=== PATIENT | female | born 2000 | race Two or more races ===

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

== ENCOUNTER 2019-04-26 21:05 | Emergency (ER) | payer OTHER ==
[~2019-04-26] VITALS: Ht 172.7 cm; Wt 80.0 kg
[2019-04-26] MEDS ORDERED: DICL75TA (21:13)
[2019-04-26] MEDS ORDERED: blood pressure (21:13)
[2019-04-26 23:05] VITALS: BP 159/109
--- NOTE | 2019-04-27 08:13 | REP ---
Clinical: Trauma. Technique: AP, lateral, bilateral oblique views right foot . Findings: The osseous structures and joint spaces are intact and normal. There is no evidence for acute fracture or dislocation. Surrounding soft tissues are unremarkable. No subcutaneous emphysema or radiodense foreign body. Impression: Normal right foot series . No acute fracture or dislocation. Electronically Signed by Juan Shelton MD 04/27/2019 08:04 A
== END 2019-04-26 23:08 | disposition home or self-care (01) ==
LOC: M ED 21:05
DX: M79.671 Pain in right foot (principal); W50.1XXA Accidental kick by another person, initial encounter; Y92.9 Unspecified place or not applicable; Y93.66 Activity, soccer; I10 Essential (primary) hypertension; Z79.899 Other long term (current) drug therapy

== ENCOUNTER 2019-08-12 21:07 | Emergency (ER) | payer OTHER ==
[~2019-08-12] VITALS: Ht 172.7 cm; Wt 84.1 kg
[~2019-08-12 21:07] MED LIST: DICL75TA; blood pressure
[2019-08-12] MEDS ORDERED: BISO10TA4 PO (21:12)
[2019-08-12] MEDS ORDERED: CHLO25TA PO (21:12)
[2019-08-12 22:28] LABS: HEMATOCRIT 32.9 % (36.0-47.0); HEMOGLOBIN 10.4 g/dl (12.0-15.5); MEAN CORPUSCULAR HEMOGLOBIN 25.7 pg (27.0-33.0); MEAN CORPUSCULAR HGB CONC 31.6 g/dl (32.0-36.5); MEAN CORPUSCULAR VOLUME 81.2 fl (80.0-96.0); PLATELET COUNT, AUTOMATED 328 10^3/uL (150-450); RED BLOOD COUNT 4.05 10^6/uL (4.00-5.40); WHITE BLOOD COUNT 5.9 10^3/uL (4.0-10.0)
[2019-08-12 23:00] LABS: BLOOD UREA NITROGEN 11 MG/DL (7-18); CARBON DIOXIDE LEVEL 31 MEQ/L (21-32); CHLORIDE LEVEL 106 MEQ/L (98-107); CK-MB VALUE MASS 1.2 NG/ML (<3.6); CPK CREATINE PHOSPHOKINASE 560 U/L (26-192); CREATININE FOR GFR 0.83 MG/DL (0.55-1.30); GLUCOSE, FASTING 82 MG/DL (70-100); MB/CK RELATIVE INDEX 0.21 (< OR =4); POTASSIUM SERUM 3.5 MEQ/L (3.5-5.1); SODIUM LEVEL 140 MEQ/L (136-145); TROPONIN I 0.07 NG/ML (< 0.10)
[2019-08-12 23:31] VITALS: BP 163/91
--- NOTE | 2019-08-12 23:52 | ECGEPIP ---
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
== END 2019-08-12 23:50 | disposition home or self-care (01) ==
LOC: M ED 21:07
DX: R07.89 Other chest pain (principal); I10 Essential (primary) hypertension

== ENCOUNTER 2021-03-01 08:00 | Emergency (ER) | payer OTHER ==
[~2021-03-01] VITALS: Ht 170.2 cm; Wt 88.2 kg
[~2021-03-01 08:00] MED LIST changes: +BISO10TA4 PO; +CHLO25TA PO
[2021-03-01 08:08] VITALS: BP 158/98
[2021-03-01] MEDS ORDERED: LISI-898 (08:12)
[2021-03-01] MEDS ORDERED: KETOROLAC TROMETHAMINE 10 MG TAB PO ONE (08:30)
[2021-03-01] MEDS ORDERED: KETO10TAB PO (09:18)
== END 2021-03-01 09:32 | disposition home or self-care (01) ==
LOC: M ED 08:00
DX: M26.602 Left temporomandibular joint disorder, unspecified (principal); I10 Essential (primary) hypertension; Z79.899 Other long term (current) drug therapy

== ENCOUNTER 2021-08-03 06:52 | Emergency (ER) | payer OTHER ==
[~2021-08-03] VITALS: Ht 172.7 cm; Wt 88.2 kg
[~2021-08-03 06:52] MED LIST changes: +KETO10TAB PO; +LISI-898
--- OUTSIDE RECORDS SUMMARY | 2021-08-03 07:00 | CCD ---
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 If such information is present, then the following federally mandated warning applies: This information has been disclosed to you from records protected by federal confidentiality rules (42 CFR part 2). The federal rules prohibit you from making any further disclosure of this information unless further disclosure is expressly permitted by the written consent of the person to whom it pertains or as otherwise permitted by 42 CFR part 2. A general authorization for the release of medical or other information is NOT sufficient for this purpose. The Federal rules restrict any use of the information to criminally investigate or prosecute any alcohol or drug abuse patient.The records that you are about to access may contain highly sensitive health information, the redisclosure of which is protected by Article 27-F of the [facility] Public Health law. If you continue you may have access to information: Regarding HIV / AIDS; Provided by facilities licensed or operated by the [facility] Office of Mental Health; or Provided by the [facility] Office for People With Developmental Disabilities. If such information is present, then the following [facility] mandated warning applies: This information has been disclosed to you from confidential records which are protected by state law. State law prohibits you from making any further disclosure of this information without the specific written consent of the person to whom it pertains, or as otherwise permitted by law. Any unauthorized further disclosure in violation of state law may result in a fine or chcf sentence or both. A general authorization for the release of medical or other information is NOT sufficient authorization for further disc losure. Encounters Encounter Providers Location Date Indications Data Source(s ) Emergency Attender: ZAID HOLLOWAYConsultant: [facility] 01/03/2021 12:02:00 PM EDT - 01/03/2021 02:25:00 PM EDT [facility] Patient discharged. Immunizations Vaccine Date Status Description Data Source(s) COVID-19 VACCINE Magen 01/03/2021 12:00:00 AM EDT completed NYSIIS Vaccine Series Complete: YESThis Data wa s Submitted to [facility] Via [facility]. Medications No Information Insurance Providers Payer name Policy type / Coverage type Policy ID Covered alliance party ID Covered alliance party's relationship to vasquez Policy Vasquez Plan Information [employer] [id number] SP [id number] [employer] - O/P [id number] 18 [id number] [employer] F [id number] SELF [id number] [facility] Trevenaa F [id number] SELF [id number] ANSI-Not a Secondary Insurance [id number] Problems, Conditions, and Diagnoses Code Display Name Description Problem Type Effective Dates Data Source(s) V37539 Other half-way (current) drug therapy 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 Diagnosis 01/03/2021 12:02:00 PM EDT [facility] R778 Other specified abnormalities of plasma proteins Other specified abnormalities of plasma proteins Diagnosis 01/03/2021 12:02:00 PM EDT [facility] R7989 Other specified abnormal findings of blo od chemistry Other specified abnormal findings of blood chemistry Diagnosis 01/03/2021 12:02:00 PM EDT [facility] R791 Abnormal coagulation profile Abnormal coagulation prof ile Diagnosis 01/03/2021 12:02:00 PM EDT [facility] I10 Essential (primary) hypertension Essential (primary) h ypertension Diagnosis 01/03/2021 12:02:00 PM EDT [facility] M940 Chondrocostal junction syndrome [Tietze] Chondrocostal junction syndrome [Tietze] Diagnosis 01/03/2021 12:02:00 PM EDT [facility] R0789 Other chest pain Other chest pain Diagnosis 01/03/2021 12 :02:00 PM EDT [facility] Surgeries/Procedures No Information Results ID Date Data Source [id number] 01/05/2021 10:53:00 AM EDT [facility] [address] [place] [address] PHONE: [phone] FAX: [phone] Name .................. : HIEU Zhao Acct Number.................. : [id number] ROOM. ................. : [facility]03 Number ................... : [id number] Stay type ............. : E/R Discharge Date......... ... : 01/03/21 Admit Date ......... : 01/03/21 Admit Phys .................... : AMIE ORDOÑEZ Date of ....... : 2000 Family Phys ................... : UNKNOWN Phone . ................. : [phone] Age ................................ : 20 Film# .................. .:[id number] Sex ................................. : F Unsigned transcriptions are preliminary reports and do not represent a medical or legal document CHEST PORTABLE 13715 COMPLETE:01/03/21 14:42 [facility] 8569 Reason(s): Chest Pain PORTABLE CHEST X-RAY: INDICATION: Chest pain. FINDINGS: The cardiac and mediastinal silhouettes appear normal and the lungs are clear. The bones and soft tissues are normal. The upper abdomen is unremarkable. IMPRESSION: No acute disease identifiable. Examination dictated by EFRAIN Manning. Examination was reviewed with Frank Hinton MD, radiologist at the time of this dictation. Electronically Reviewed and Signed By Frank Hinton MD , 01/05/21 10:53, KGG Transcribe Initials: DZ , Transcribe Date: 01/03/21 16:18, Dictation Date: Copy for: EMERGENCY DEPT via modem Copy for: 710 MED REC DISCHARGED Page 1 of 1 Name Value Range Interpretation Code Description Data Diane rce(s) Supporting Document(s) ID Date Data Source [id number] 01/04/2021 10:59:00 [place] [address] RESPIRATORY CARE REPORT ==== ---------NAME------- NUMBER SEX AGE ADMIT DISC. XRAY# F/C ROSALINE Zhao [id number] F 01/03/21 01/03/21 [id number] SB4 E/R DATE OF : 2000 M/R# [id number] #: [id number] TR-03 LOCATION: EMERGENCY DEPT EKG 49646 COMP LETE:01/04/21 03:12 AJP 79719 PHYSICIAN: AMIE ORDOÑEZ Name Value Range Interpretation Code Description Data Diane rce(s) Supporting Document(s) ID Date Data Source [id number] 01/04/2021 11:36:00 AM EDT [facility] [address] [place] [address] PHONE: [phone] FAX: [phone] Name .................. : HIEU SARAVIASLYN Pavel Acct Number.................. : [id number] ROOM. ................. : TR-03 Number ................... : [id number] Stay type ............. : E/R Discharge Date......... ... : 01/03/21 Admit Date ......... : 01/03/21 Admit Phys .................... : AMIE ORDOÑEZ Date of ....... : 2000 Family Phys ................... : UNKNOWN Phone .................. : Age ................................ : 20 Film# .................. .:[id number] Sex ................................. : F Unsigned transcriptions are preliminary reports and do not represent a medical or legal document CT CTA CHEST NON-CORONARY Luzma Kraft 02872 COMPLETE:01/03/21 13:55 [facility] 8581 Reason(s): chest pain, high d-dimer CTA OF THE CHEST WITH CONTRAST: FINDINGS: Pulmonary embolism, aortic aneurysm or aortic dissection is not identified. The heart is not enlarged. There is no pleural effusion or pericardial effusion. Pneumonic infiltrate or pulmonic mass lesion is not seen. The central endobronchial structures are unremarkable. The upper abdomen is without suggestion of acute pathology or mass. Fracture deformity or destructive osseous lesion is not identified. IMPRESSION: Slightly limited examination due to motion. Pulmonary embolism, aortic aneurysm or aortic dissection not seen. Mass or adenopathy not identified. Pneumonic infiltrate is not seen. While performing the above CT examination, radiation dose reduction was accomplished utilizing automated exposure control, adjusting of the mA and kV based on the patient's body size and/or the use of imperative reconstructive techniques. CT dose: 448.4 mGycm Contrast agent in mL: 75 Isovue 370 Method of administration: Intravenous Electronically Reviewed and Signed By Page 1 of 2 [place] [address] PHONE: [phone] FAX: [phone] Name .................. : HIEU Zhao Acct Number.................. : [id number] ROOM. ................. : TR-03 MR Number ................... : [id number] Stay type ............. : E/R Discharge Date......... ... : 01/03/21 Admit Date ......... : 01/03/21 Admit Phys .................... : AMIE ORDOÑEZ Date of ....... : 2000 Family Phys ................... : UNKNOWN Phone .................. : Age ................................ : 20 Film# .................. .:[id number] Sex ................................. : F Unsigned transcriptions are preliminary reports and do not represent a medical or legal document CT CTA CHEST NON- CORONARY W C 21163 COMPLETE:01/03/21 13:55 [facility] 8581 Reason(s): chest pain, high d-dimer Frank Hinton MD , 01/04/21 11:36, KGG Transcribe Initials: LE , Transcribe Date: 01/04/21 01:11, Dictation Date: Copy for: EMERGENCY DEPT via modem Copy for: 710 MED REC DISCHARGED Page 2 of 2 Name Value Range Interpretation Code Description Data Diane rce(s) Supporting Document(s) ID Date Data Source [id number] 01/03/2021 12:02:00 PM EDT [facility] 1 OrderSheet [facility] Emergency Department [address] [place] [address] Phone #: ext- [phone] 01/03/2021 11:47 Patient: JOHNNY HAGEN Sex: F : 2000 Age: 20yWEIGHT:87.5 kg (S) HEIGHT:68 inches (S) BMI:29.3ALLERGIES: NoneCHIEF COMPLAINT: chest pain, discomfortDIAGNOSIS: Costal chondritisLAB ORDERSOrder Description Priority Entered Acknowledged InitialedCBC w Diff STAT 12:01/03/2021 12:12 Amie Galvan Riccardo Frank R.N. M.D.;CMP STAT 12:01/03/2021 12:12 Amie Galvan Riccardo Frank R.N. M.D.;PT/PTT STAT 12:01/03/2021 12:12 Amie Galvan Riccardo Frank R.N. M.D.;Troponin-T STAT 12:01/03/2021 12:12 Amie Galvan Riccardo Frank R.N. M.Amanda;BNP STAT 12:01/03/2021 12:12 Amie Galvan Riccardo Frank R.N. M.D.;D-Dimer STAT 12:01/03/2021 12:12 Amie Galvan Riccardo Frank R.N. M.Yani.;Lipase STAT 12:01/03/2021 12:12 Amie Galvan Riccardo Frank R.N. M.D.;HCG Serum Qual STAT 12:01/03/2021 12:12 Amie Galvan Riccardo Frank R.N. M.D.;HCG Urine Qual STAT 13:15 01/03/2021 Cancelled: Duplicate Order 13:17 Amie Holloway Riccardo Riccardo M.D. M.D.;DIAGNOSTIC STUDY ORDERSOrder Description Priority Entered Acknowledged InitialedChest Portable 1 STAT 12:01/03/2021 12:12 Bienvenido Galvan OrderSheet [facility] Emergency Department [address] [place] [address] Phone #: ext- [phone] 01/03/2021 11:47 Patient: JOHNNY HAGEN Sex: F : 2000 Age: 20yView Zaid Holloway R.N.(Oxygen?(No)) Daniel; Reason for Study: Chest PainCT CTA CHEST STAT 13:13 01/03/2021 13:15 Mandy,(NONCOR) W Zaid Bobby R.N.INC PP M.D.;(Oxyge n?(No))(IV?(Yes)) Reason for Study: chest pain, high d- dimerMEDICATION/IV/DRIP/FLUID ORDERSOrder Description Priority Entered Acknowledged InitialedAspirin PO 12:01/03/2021 12:21 Sorbero,Chewable 81 mg Turrin, Zaid Reji R.N.162 mg M.D.;Ofirmev IV 1000 mg 12:01/03/2021 12:21 Sorbero,(NOW x1, Infuse Turrin, Zaid Reji R.N.over 15 minutes) M.D.;GENERAL ORDERSOrder Description Priority Entered Acknowledged InitialedBlood Pressure 12:01/03/2021 12:12 Sorbero,Monitor Turrin, Zaid Reji R.N. M.D.;Lettuce Cutter 12:01/03/2021 12:12 Sorbero,(continuous) Turrin, Zaid Reji R.N. M.D.;EKG 12:01/03/2021 12:12 Sorbero, Turrin, Zaid Reji R.N. M.D.;NPO 12:01/03/2021 12:12 Sorbero, Turrin, Zaid Reji R.N. M.D.;Obtain Old EKG 12:01/03/2021 12:12 Sorbero, Turrin, Zaid Reji R.N. M.D.;Obtain Old Records 12:01/03/2021 12:12 Sorbero, Turrin, Zaid Reji R.N. M.D.;Oxygen titrate to 12:01/03/2021 12:12 Sorbero,92% Turrin, Zaid Reji R.N. M.D.;Pulse oximeter 12:01/03/2021 12:12 Sorbero, 3 OrderSheet [facility] Emergency Department [address] [place] [address] Phone #: ext- [phone] 01/03/2021 11:47 --------- [id number] Sex: F : 2000 Age: 20y(Continuous) Zaid Hollwoay R.N., M.D.;Saline Lock 12:09 01/03/2021 12:12 Amie Galvan Riccardo Frank R.N. M.D.;Vitals 12:09 01/03/2021 12:12 Amie Galvan Riccardo Frank R.N. M.D.;[Electronically signed by Carri Jimenes R.N. (14:01/03/2021)][Electronically signed by Zaid Holloway M.D. (14:01/03/2021)][Electronically locked by Carri Jimenes R.N. (14:01/03/2021)] Name Value Range Interpretation Code Description Data Diane rce(s) Supporting Document(s) ID Date Data Source [id number] 01/03/2021 12:02:00 PM EDT [facility] 1 Medication Reconciliation Report [facility] Emergency Department [address] [place] [address] Phone #: ext- [phone] 01/03/2021 11:47 Patient: JOHNNY HAGEN Sex: F : 2000 Age: 20yWeight: 87.5 kgHeight/Length: 68 in.BMI: 29.3ALLERGIES: NoneThe patient's Home Medications are listed below:CONTINUE TAKING THE FOLLOWING MEDICATIONS: Chlorthalidone Oral (25 mg), daily Lisinopril Oral (5 mg), dailyThe source(s) of the original Home Medication information:Not obtained.The following Medications were given to the patient in the Emergency Department:ASPIRIN CHEWABLE 81 MG [PO] PO 162 mg, administered: 12:21 04/12/2021ofirmev IVPB bolus 0, then 1000 mg, administered: 12:21 01/03/2021The following Medications were prescribed to the patient:None. Name Value Range Interpretation Code Description Data [facility](s) Supporting Document(s) ID Date Data Source [id number] 01/03/2021 12:02:00 PM EDT [place] [address] Medication Administration Record [facility] Emergency Department [address] [place] [address] Phone #: ext [phone] 01/03/2021 11:47 Patient: JOHNNY HAGEN Sex: F : 2000 Age: 20yWeight: 87.5 kgHeight/Length: 68 inBMI: 29.3ALLERGIES: None Date/Time Medication Administered Medication OrderedGiven ASPIRIN CHEWABLE 81 MG [PO] Aspirin PO Chewable 81 mg 97490:21 01/03/2021 Dose: 162 mg Tablets PO mgSoReji sanderson R.N.Start ofirmev * Ofirmev IV 1000 mg (NOW x1,12:21 01/03/2021 Dose: 1000 mg * IVPB Infuse over 15 minutes)Reji Galvan R.N.----Stop12:37 01/03/2021Reji huffman R.N. Name Value Range Interpretation Code Description Data [facility](s) Supporting Document(s) ID Date Data Source [id number] 01/03/2021 12:02:00 PM EDT [facility] 1 General Instructions [facility] Emergency Department [address] [place] [address] Phone #: ext- [phone] 01/03/2021 11:47 Patient: JOHNNY HAGEN [facility]#: [id number] Sex: F : 2000 Age: 20yCostochondritis (recurrent).INSTRUCTIONSAvoid stimulants (such as cigarettes, coffee, cold medicines, sinus medicines, street drugs). Follow a lowsalt diet and low cholesterol diet. Do not smoke. No alcohol.Warnings: Further evaluation is necessary. It is very important to follow up with a healthcare provider.GENERAL WARNINGS: Return or contact your physician immediately if your condition worsens orchanges unexpectedly, if not improving as expected, or if other problems arise. SPECIFICALLY, return ifyou develop chest, neck, jaw, shoulder, arm, or back pain, difficulty breathing, a fluttering sensation in yourchest, lightheadedness, fainting, excessive fatigue, or sudden sweating.Your Current Medications: Your current home medications have been reviewed.CONTINUE TAKING THE FOLLOWING MEDICATIONS:Chlorthalidone Oral : Tablet 25 mg, daily.Lisinopril Oral : Tablet 5 mg, daily.Follow-up:Return to the emergency department as needed. Follow up with a senior management consultant in three days even if well.Call for an appointment. Reason for referral: evaluation, treatment and stress test. Summary of careprovided to patient via paper.Understanding of the discharge instructions verbalized by patient. Expected course of illness, dischargeinstructions, activity level, diet, follow-up appointment and risks and benefits of treatment reviewed withpatient and understanding verbalized. Agrees to plan of care.Follow-up with: Kevin Clark MD, Cardiology, , [address] [place] [address], [facility] Follow up in three days even if well. Call for an appointment. Reason for referral: evaluation, treatmentand stress test. Summary of care provided to patient via paper. ADDITIONAL INFORMATIONChest Wall Pain: Costochondritis 2 General Instructions [facility] Emergency Department [address] [place] [address] Phone #: ext- [phone] 01/03/2021 11:47 [facility]: [id number] Sex: F : 2000 Age: 20yThe chest pain that you have had today is caused by costochondritis. This condition is caused by aninflammation of the cartilage joining your ribs to your breastbone. It's not caused by heart or lungproblems. Your healthcare team has made sure that the chest pain you feel is not from a lifethreatening cause of chest pain such as heart attack, collapsed lung, blood clot in the lung, tear in theaorta, or esophageal rupture. The inflammation may have been brought on by a blow to the chest,lifting heavy objects, intense exercise, or an illness that made you cough and sneeze a lot. It oftenoccurs during times of emotional stress. It can be painful, but it's not dangerous. It usually goes awayin 1 to 2 weeks. But it may happen again. Rarely, a more serious condition may cause symptomssimilar to costochondritis. That's why it's important to watch for the warning signs listed below.Home careFollow these guidelines when caring for yourself at home: If you feel that emotional stress is a cause of your condition, try to figure out the sources of that stress. It may not be obvious. Learn ways to deal with the stress in your life. This can include regular exercise, muscle relaxation, meditation, or simply taking time out for yourself. You may use acetaminophen, ibuprofen, or naproxen to control pain, unless another pain medicine was prescribed. If you have liver or kidney disease or ever had a stomach ulcer, talk with your healthcare provider before using these medicines. You can also help ease pain by using a hot, wet compress or heating pad. Use this with or without a medicated skin cream t hat helps relieves pain. Do stretching exercise as advised by your provider. Typically rest is beneficial for the first few days. Avoid strenuous activity that worsens the pain. 3 General Instructions [facility] Emergency Department [address] [place] [address] Phone #: ext- [phone] 01/03/2021 11:47 Patient: JOHNNY HAGEN Sex: F : 2000 Age: 20y Take any prescribed medicines as directed.Follow- up careFollow up with your healthcare provider, or as advised.When to seek medical adviceCall your healthcare provider right away if any of these occur: A change in the type of pain. Call if it feels different, becomes more serious, lasts longer, or spreads into your shoulder, arm, neck, jaw, or back. Shortness of breath or pain gets worse when you breathe Weakness, dizziness, or fainting Cough with dark-colored sputum (phlegm) or blood Abdominal pain Dark red or black stools Fever of 100.4F (38C) or higher, or as directed by your healthcare provider [phone] [employer]. [address] [place] [address]. All rights reserved. This information is not intended as asubstitute for professional medical care. Always follow your healthcare professional's instructions. You have been given the following additional information: Chest Wall Pain, Costochon dritis(Electronically signed by Zaid Holloway M.D. 01/03/2021 14:41) Name Value Range Interpretation Code Description Data Diane rce(s) Supporting Document(s) ID Date Data Source [id number] 01/03/2021 12:02:00 PM EDT [facility] 1 Clinical Report - Nurses [facility] Emergency Department [address] [place] [address] Phone #: ext- [phone] 01/03/2021 11:47 Patient: JOHNNY HAGEN Sex: F : 2000 Age: 20yTRIAGEArrived by private vehicle, and accompanied by friend. Historian not patient. ( chest pain mid sternalstarted yesterday morning and she states "it is spreading out", reproducible with palpation and hurts withdeep breath, has had chest pain before and was dx with heart murmur).Acuity: LEVEL 3.Chief Complaint: CHEST PAIN.Alert.This started yesterday.Treatment INBOUND SALES CONSULTANT:None.SEPSIS SCREEN: SIRS SCREEN NEGATIVE. SEPSIS SCREEN NEGATIVE. No suspected or confirmedsigns of infection present. --11:53 01/03/21 Demi Ohara R.N.11:48 01/03/21. BP: 156/93. MAP: 114. HR: 74. RR: 15. O2 saturation: 100%. Temp: 98.7 F. Pain levelnow: 03/03. --11:53 01/03/21 Demi Ohara R.N.Weight: 87.5 kg stated. Height/Length: 68 inches Per Patient. BMI: 29.3. --11:48 01/03/21 Demi Ohara R.N.MedicationsChlorthalidone Oral (Tablet 25 mg), daily. --11:50 01/03/21 Deim Ohara R.N. Lisinopril Oral (Tablet 5 mg), daily. --11:50 01/03/21 Demi Ohara R.N.AllergiesNone. --11:50 01/03/21 Demi Ohara R.N.PROBLEMS:Heart Murmur. --11:51 01/03/21 Demi Ohara R.N.Hypertension. --12:26 01/03/21 Zaid Holloway M.D.The following entry was modified by Zaid Holloway M.D., 12:26 01/03/21Hypertension. --11:50 01/03/21 Demi Ohara R.N..ADDITIONAL SURGERIES:no known surgeries.History 2 Clinical Report - Nurses [facility] Emergency Department [address] [place] [address] Phone #: ext- [phone] 01/03/2021 11:47 [id number] Sex: F : 2000 Age: 20y PAST MEDICAL HX: Immunizations: up-to-date. Last normal menstrual period- December 16. SOCIAL HX: Never smoker. Occasional alcohol use. No drug use. She was offered HIV testing but declined and hepatitis C testing but declined. She has not traveled outside the [place] Infectious disease exposure: No infectious disease exposure. Patient is not a known carrier of tuberculosis, hepatitis, HIV, MRSA or VRE. Patient is not a known carrier of CRE. SELF HARM ASSESSMENT: Self harm assessment was performed. The patient answered "no" to the question(s) "Have you recently felt down, depressed, or hopeless?", "Do you have thoughts of harming or killing yourself?", "Do you have a plan for harming or killing yourself?", "Have you recently had thoughts about harming or killing others?", "Do you have any dangerous items in your possession?", "Have you noticed less interest or pleasure in doing things?", "Are you here because you tried to hurt yourself?" and "Have you ever tried to hurt yourself before today?". ABUSE ASSESSMENT: Abuse assessment. Abuse denied. No suspicion of abuse. No report of abuse. NUTRITIONAL RISK ASSESSMENT: The nutritional risk assessment revealed no deficiencies. FUNCTIONAL ASSESSMENT: Functional assessment: no impairments noted. LEARNING NEEDS ASSESSMENT: The learning needs assessment revealed no barriers. FALL RISK ASSESSMENT: Fall risk assessment completed. No risk factors identified. SKIN INTEGRITY ASSESSMENT: Skin integrity risk assessment completed. No skin integrity risk identified. --11:53 01/03/21 Demi Ohara R.N. Interventions Identification band on patient. To treatment room. --11:53 01/03/21 Demi Ohara R.N.PHYSICAL [id number] 01/03/21. Patient gowned.GENERAL / NEURO / PSYCH: Alert. Oriented X 4. Appears in no acute distress.HEENT: Mucous membranes are pink.RESPIRATORY: Respirations not labored. Chest nontender. Breath sounds within normal limits.CVS: Normal sinus rhythm noted. Heart sounds within normal limits. Pulses within normal limits.Capillary refill less than 2 seconds.GI / : Abdomen soft and nontender.EXTREMITIES: No lower extremity edema.SKIN: Skin is warm and dry. Normal skin turgor. Skin is non-tender. --12:02 01/03/21 Reji Galvan R.N.NURSING PROGRESS NOTESCardiac monitor and NIBP monitor placed on patient; monitor alarms on. Patient gowned. Reassurancegiven. Call light placed in reach. Side rails up x 2. Bed placed in lowest position. Brakes of bed on. 3 Clinical Report - Nurses [facility] Emergency Department [address] [place] [address] Phone #: ext- [phone] 01/03/2021 11:47 [id number] Sex: F : 2000 Age: 20yPatient ready for evaluation. --11:53 01/03/21 Demi Ohara R.N.EKG time: (11:50 01/03/2021). EKG was performed by a nurse and shown to the ED physician. --11:5301/03/21 Demi Ohara R.N.11:59 01/03/21. BP: 159/106. MAP: 123. HR: 88. RR: 16. O2 saturation: 100%. --11:59 01/03/21 Isamar Otriz ER Bxof161:[id number] 01/03/2021 Site #1 started via IV in the left antecubital space with an 20g angiocath, with aseptictechnique and good blood return; one attempt. Blood drawn: rainbow set. Labeled in the presence of thepatient and sent to the lab. Saline lock flushed with 10 mL saline. --12:02 01/03/21 Reji Galvan R.N.12:21 01/03/2021 ASPIRIN CHEWABLE 81 MG PO Tablets 162 mg given. Allergies verified and confirmed5 rights. Information reviewed with patient including reason for taking this medication, signs of allergicreaction and precautions. Verbalizes understanding. --12:21 01/03/21 Reji Galvan R.N.12:21 01/03/2021 ofirmev * IVPB 1000 mg --12:21 01/03/21 Reji Galvan R.N.12:27 01/03/21. BP: 146/96. MAP: 112. HR: 78. RR: 17. O2 saturation: 99%. --12:27 01/03/21 Isamar Ortiz, Ruqv138:37 01/03/2021 Ofirmev IVPB Discontinued: bag #1 completed. Total amount infused: 100 mL. IVpatency established. IV site checked: no pain, redness, or swelling. IV flushed thoroughly. --12:38 01/03/21Serenity Galvan R.N.12:47 01/03/21. Reassurance given. Reassessment acuity: LEVEL 3. Reassessment after medicationadministered. No adverse reaction. Pain still present but improving. She reports no complaints, she iscalm and resting quietly and she has had no adverse reaction. Overall patient status is improved- shestates feels better.RESPIRATORY: No respiratory distress. Breath sounds normal. Two patient identifiers checked. Calllight placed in reach. Side rails up x 2. Bed placed in lowest position. Brakes of bed on. --12:4801/03/21 Reji Galvan R.N.12:59 01/03/21. BP: 148/94. MAP: 112. HR: 80. RR: 20. O2 saturation: 99%. --12:59 01/03/21 Isamar Ortiz, Vyfs861:49 01/03/21. BP: 161/97. MAP: 118. HR: 88. RR: 12. O2 saturation: 100%. --13:50 01/03/21 Isamar Ortiz [id number] acuity: LEVEL 3. The patient reports no complaints, she is calm and resting quietly andshe has had no adverse reaction. Overall patient status is improved- she states feels better. --14:0501/03/21 Reji Galvan R.N.14:00 01/03/21. BP: 149/93. MAP: 111. HR: 83. RR: 12. O2 saturation: 98%. --14:10 01/03/21 [facility] 4 Clinical Report - Nurses [facility] Emergency Department [address] [place] [address] Phone #: ext- [phone] 01/03/2021 11:47 --------- Patient: [id number] Sex: F : 2000 Age: 20y [facility] Tech.DISPOSITION / DISCHARGE 14:21 01/03/21. BP: 154/92. MAP: 112. HR: 99. RR: 13. O2 saturation: 100%. Temp: 98.1 F. Pain level now: 11/03. --14:22 01/03/21 [facility] zLense 14:24 01/03/2021 Site #1 removed upon discharge. Catheter intact. Manual pressure and bandage applied. --14:24 01/03/21 Carri Jimenes R.N. Condition at departure: improved and stable. No learning barriers present. Discharge instructions provided and reviewed with the patient. Reviewed referral to a senior management consultant. Work note given. Patient verbalized understanding. Written instructions provided in Kittitian. The patient was discharged by the physician. She was discharged home and accompanied by visiting housekeeper. She left ambulatory and via private vehicle. 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 --14 :24 01/03/21 Carri Jimenes R.N.Locked/Released at 01/03/2021 14:24 by Carri Jimenes R.N. Name Value Range Interpretation Code Description Data Diane rce(s) Supporting Document(s) ID Date Data Source [id number] 01/03/2021 12:02:00 PM EDT [facility] 1 Clinical Report - Physicians/Mid Levels [facility] Emergency Department [address] [place] [address] Phone #: ext- [phone] 01/03/2021 11:47 Patient: JOHNNY HAGEN Sex: F : 2000 Age: 20y Time Seen: 11:48 01/03/2021; initial patient contact. Arrived- By private vehicle. Historian- patient. Disposition decision: 14:17 01/03/2021.HISTORY OF PRESENT ILLNESS Chief Complaint: CHEST PAIN and DISCOMFORT. This started yesterday and is still present. It has been intermittent and waxing/waning. Onset during rest. It is described as sharp and it is described as located in the central chest area. No radiation. At its maximum, severity described as moderate and 6 / 10. When seen in the E.D., severity described as mild and 2 / 10. Modifying factors- worsened by movement and deep breaths. Relieved by rest. No nausea, vomiting, difficulty breathing or diaphoresis. Similar symptoms previously. Patient has had similar symptoms frequently. ( was seen in ER in [place], [place] last year for this and ER in [place] 2 months ago; also saw senior management consultant in [place] last year for echocardiogram; seen on Post this am, sent to ER). Recent medical care: Not recently seen/assessed.REVIEW OF SYSTEMSNo fever, chills, cough, pedal edema or calf pain. No fainting episodes, headache, sore throat, blurredvision or abdominal pain. No black stools, difficulty with urination, skin rash, enlarged lymph nodes or jointpain. No bloody stools. All other systems reviewed and are negative.PAST HISTORYSee nurses notes. Problems: Hypertension. Heart Murmur. Additional Surgeries: no known surgeries. Medications: Lisinopril Oral (Tablet 5 mg), daily. Chlorthalidone Oral (Tablet 25 mg), daily. Allergies: None.SOCIAL HISTORYNever smoker. Occasional alcohol use. No drug use.ADDITIONAL NOTES 2 Clinical Report - Physicians/Mid Levels [facility] Emergency Department [address] [place] [address] Phone #: ext- [phone] 01/03/2021 11:47 Patient: JOHNNY HAGEN Sex: F : 2000 Age: 20y The nursing notes have been reviewed with agreement regarding the chief complaint, HPI, ROS, PMH and patient medications and allergies.PHYSICAL EXAMVital Signs: 01/03/2021 11:59 BP: 159/106. MAP: 123. HR: 88. RR: 16. O2 saturation: 100%.01/03/2021 11:48 BP: 156/93. MAP: 114. HR: 74. RR: 15. O2 saturation: 100%. Temp: 98.7 F. Pain levelnow: 6/10. Have been reviewed. Oxygen saturation normal.Appearance: Alert. Oriented X3. No acute distress.Eyes: Pupils equal, round and reactive to light. Eyes normal inspection.ENT: Nose normal. Pharynx normal.Neck: Normal inspection. Neck supple.CVS: Normal heart rate and rhythm. 2/6 mid systolic murmur located at the apex. Pulses normal.Respiratory: No respiratory distress. Chest pain reproducible with palpation of the sternum. Painlessinspiration. Breath sounds normal.Abdomen: Soft and nontender. Bowel sounds normal. No organomegaly. No mass. Femoral pulsesequal.Back: Normal external inspection.Skin: Skin warm and dry. Normal skin color. No rash. Normal skin turgor.Extremities: Extremities exhibit normal ROM. No clubbing present or lower extremity edema. No calftenderness. No lower extremity edema.Neuro: Oriented X 3. No motor deficit. No sensory deficit.LABS, X-RAYS, AND EKGEKG: No acute process. No acute ischemia. Normal EKG. Normal sinus rhythm. Rate: 79/min.Normal ST and T waves. NAD. Prior EKG unavailable. The study has been interpretedcontemporaneously by me. The EKG appears to be a good tracing. Interpretation time: 11:.Chest X-ray: No acute disease. Views: AP (p ortable). Technique: good. The X-rays were interpretedby the radiologist and contemporaneously by me. Interpretation time: 12:43 01/03/2021.CTA Pulmonary Arteries: Normal study. No evidence of pulmonary embolism. The CTA was performedwith contrast. The study was interpreted by the radiologist. Interpretation time: 14:05 01/03/2021.Laboratory Tests: Laboratory tests have been ordered, with results reviewed and considered in themedical decision making process. Beta-HCG, Qual Urine: (DENISE: 01/03/2021 13:15) ( MsgRcvd 01/03/2021 13:18) Canceled CT CTA CHEST NON-CORONARY W CON INC PP: (DENISE: 01/03/2021 13:13) ( VagRcvd 01/03/2021 13:56) In Progress CT CTA CHEST NON-CORONARY W CON INC PP Reason(s): chest pain, high d-dimer TRANSPORTATION: WC IV? IV?(Yes) O2? Oxygen?(No) Ro CBC w Diff: (DENISE: 01/03/2021 12:05) ( MsgRcvd 01/03/2021 12:31) Final results Test Result Flag Units (Reference) CBC W/AUTOMATED DIFF COMPLETE BLOOD COUNT 3 Clinical Report - Physicians/Mid Levels [facility] Emergency Department [address] [place] [address] Phone #: ext- [phone] 01/03/2021 11:47 Patient: JOHNNY HAGEN Sex: F : 2000 Age: 20y WBC 8.0 10/uL (4.2 - 11.0) RBC 4.51 10/uL (4.20 - 5.40) HEMOGLOBIN 10.4 L g/dL (12.0 - 16.0) HEMATOCRIT 32.5 L % (37.0 - 47.0) MCV 72.1 L fL (81.0 - 101) MCH 23.1 L pg (27.0 - 34.0) MCHC 32.0 g/dL (31.0 - 36.0) RDW 15.4 H % (11.5 - 14.5) PLATELETS 427 10/uL (150 - 450) MPV 10.1 fL (7.4 - 10.4) NEUT 60.3 % (37.0 - 80.0) LYMPH 32.7 % (25.0 - 40.0) MONO 6.4 % (3.0 - 8.0) EOS 0.2 % (0.0 - 7.0) BASO 0.2 % (0.0 - 2.5) %IG 0.2 H % (0.0 - 0.0) %NRBC 0.0 % (0.0 - 0.0) #NEUT 4.83 10/uL (2.00 - 6.90) #LYMPH 2.62 10/uL (0.60 - 3.40) #MONO 0.51 10/uL (0.00 - 0.90) #EOS 0.02 10/uL (0.00 - 0.70) #BASO 0.02 10/uL (0.00 - 0.20) #IG 0.02 10/uL (0.00 - 0.10) #NRBC 0.00 10/uL (0.00 - 0.00) MANUAL DIFF NOT INDICATED RBC MORPH NOT INDICATEDCMP: (DENISE: 01/03/2021 12:05) ( MsgRcvd 01/03/2021 13:10) Final results Test Result Flag Units (Reference) COMPREHENSIVE METABOLIC PANEL COMPREHENSIVE METABOLIC PANEL SODIUM 139 mEq/L (134 - 153) POTASSIUM 4.0 mEq/L (3.6 - 5.0) CHLORIDE 103 mEq/L (98 - 107) CO2 26 MEQ/L (22 - 30) GLUCOSE 81 MG/DL (70 - 99) BUN 9 MG/DL (7 - 21) CREATININE 0.7 MG/DL (0.7 - 1.5) BUN/CREAT 13 (8 - 27) TOTAL PROTEIN 7.2 G/DL (6.3 - 8.2) ALBUMIN 4.1 G/DL (3.9 - 5.0) GLOBULIN 3.1 GM/DL (2.4 - 3.2) A/G RATIO 1.3 (0.8 - 2.0) CALCIUM 9.2 MG/DL (8.4 - 10.2) TOTAL BILI <0.7 MG/DL (0.2 - 1.3) ALKALINE PHOS 56 U/L (38 - 126) SGOT/AST 16 U/L (5 - 40) SGPT/ALT 8 U/L (7 - 56) ANION GAP 10.0 mmol/L (8.0 - 16.0) AGE 20 yrs NON-AA GFR >60 mL/min AFR AMER GFR >60 mL/min Male GFR Interprentation 20-49 yrs >60 mL/min [id number] yrs >56 mL/min Normal 60-69 yrs >49 mL/min Normal 70-79yrs>42 mL/min Normal 80 and above >35 mL/min Normal Female GFRInterpretation 20-39 yrs >60 mL/min Normal 40-49 yrs >58 mL/minNormal 50-59 yrs >51 mL/min Normal 60-69 yrs >45 mL/min Vhzcdz32-29 yrs >39 mL/min Normal 80 and above >32 mL/min Normal 4 Clinical Report - Physicians/Mid Levels [facility] Emergency Department [address] [place] [address] Phone #: ext- [phone] 01/03/2021 11:47 Patient: JOHNNY HAGEN Sex: F : 2000 Age: 20y PT/PTT: (DENISE: 01/03/2021 12:05) ( [facility] 01/03/2021 12:54) Final results Test Result Flag Units (Reference) PROTIME 13.3 SECONDS (11.0 - 15.5) INR 0.96 (0.93 - 1.23) PTT 28.0 SECONDS (24.8 - 36.7) \\BLDo\\INR INTERPRETATION\\BLDx\\ Therapeutic range for Coumadin and related oral anticoagulants. -International Normalized Ratio (INR): 2.0 - 3.0 for Venous Thrombosis, Pulmonary Embolus, Tissue heart valves, Acute NE Atrial Fibrillation, Valvular heart disease and recurrent Systemic Embolism. -International Normalized Ratio (INR): 2.5 - 3.5 for Mechanical Prosthetic valve. Troponin-T: (DENISE: 01/03/2021 12:05) ( [facility] 01/03/2021 13:45) Final results Test Result Flag Units (Reference) TROPONIN T <0.01 NG/ML (0.00 - 0.10) TROPONIN T0.1 ng/ml Recommended as the clinical threshold value forTroponin T. BNP: (DENISE: 01/03/2021 12:05) ( [facility] 01/03/2021 13:11) Final results Test Result Flag Units (Reference) BNP 94 PG/ML (0 - 125) D-Dimer: (DENISE: 01/03/2021 12:05) ( [facility] 01/03/2021 12:54) Final results Test Result Flag Units (Reference) D-DIMER QUANT 0.54 H ug/mL (0.27 - 0.50) Lipase: (DENISE: 01/03/2021 12:05) ( [facility] 01/03/2021 13:08) Final results Test Result Flag Units (Reference) LIPASE 24 U/L (13 - 60) Beta-HCG, Qual Serum: (DENISE: 01/03/2021 12:05) ( MsgRcvd 01/03/2021 12:25) Canceled Beta-HCG, Quant Serum: (DENISE: 01/03/2021 12:05) ( MsgRcvd 01/03/2021 13:20) Final results Test Result Flag Units (Reference) HCG QUANT <0.5 mIU/mL Interpretation: Less than 5 mU/mL: Negative 6-10 mU/mL: Borderline (suggest repeat in 48 hours) >10: Positive Approx HCG range (mU/mL) Weeks post LMP 5.4-708 mU/mL 3-4 Weeks 217-31092 mU/mL 5-6 Weeks 4059-390452 mU/mL 7-8 Weeks 71021-563602 mU/mL 9-10 Weeks 20475-34326 mU/mL 12-14 Weeks 95864-90633 mU/mL 15-16 Wee ks 8240-65229 mU/mL 17-18 Weeks.PROGRESS AND PROCEDURESCourse of Care: 14:16 01/03/21. workup all in and reviewed and all nml except slight elevation of d-dimer;troponin and BNP and CXR nml; CTA chest was ordered and is nml, No PE; pt has recurrentcostochondritis, doing better, will d/c home w instructions, will refer to Dr. Clark, cardiology; ptunderstands and agrees. 5 Clinical Report - Physicians/Mid Levels [facility] Emergency Department [address] [place] [address] Phone #: ext- [phone] 01/03/2021 11:47 Patient: JOHNNY HAGEN Sex: F : 2000 Age: 20y Patient counseled in person regarding the patient's stable condition, test results, diagnosis and need for follow-up. Patient agrees with plan of care. Disposition: Condition: good and stable. Discharge decision based on the following: patient's condition is stable; patient's condition is improved; patient is ambulatory; patient is active; patient drinking fluids; patient eating; patient's pain is controlled; patient's exam is improved; no abnormal test results; improving condition on multiple repeat evaluations; social support is good; transportation is available; follow-up is available; clinical impression is consistent with outpatient treatment.CLINICAL IMPRESSION Costochondritis (recurrent).INSTRUCTIONS Avoid stimulants (such as cigarettes, coffee, cold medicines, sinus medicines, street drugs). Follow a low salt diet and low cholesterol diet. Do not smoke. No alcohol. Warnings: Further evaluation is necessary. It is very important to follow up with a healthcare provider. GENERAL WARNINGS: Return or contact your physician immediately if your condition worsens or changes unexpectedly, if not improving as expected, or if other problems arise. SPECIFICALLY, return if you develop chest, neck, jaw, shoulder, arm, or back pain, difficulty breathing, a fluttering sensation in your chest, lightheadedness, fainting, excessive fatigue, or sudden sweating. Your Current Medications: Your current home medications have been reviewed. CONTINUE TAKING THE FOLLOWING MEDICATIONS: Chlorthalidone Oral : Tablet 25 mg, daily. Lisinopril Oral : Tablet 5 mg, daily. Follow-up: Return to the emergency department as needed. Follow up with a senior management consultant in three days even if well. Call for an appointment. Reason for referral: evaluation, treatment and stress test. Summary of care provided to patient via paper. Understanding of the discharge instructi ons verbalized by patient. Expected course of illness, discharge instructions, activity level, diet, follow-up appointment and risks and benefits of treatment reviewed with patient and understanding verbalized. Agrees to plan of care. Follow-up with: Kevin Clark MD, Cardiology, , [address] [place] [address], [phone] Follow up in three days even if well. Call for an appointment. Reason for referral: evaluation, treatment 6 Clinical Report - Physicians/Mid Levels [facility] Emergency Department [address] [place] [address] Phone #: ext- [phone] 01/03/2021 11:47 Patient: JOHNNY HAGEN [facility]#: [id number] Sex: F : 2000 Age: 20y and stress test. Summary of care provided to patient via paper.(Electronically signed by Zaid Holloway M.D. 01/03/2021 14:41) Name Value Range Interpretation Code Description Data Diane rce(s) Supporting Document(s) ID Date Data Source [id number] 01/03/2021 01:45:00 PM EDT [facility] Name Value Range Interpretation Code Description Data Diane rce(s) Supporting Document(s) TROPONIN T <0.01 NG/ML 0.00 - 0.10 [facility] TROPONIN T0.1 ng/ml Recommended as the c linical threshold value forTroponin T. ID Date Data Source [id number] 01/03/2021 01:20:00 PM EDT [facility] Name Value Range Interpretation Code Description Data Diane rce(s) Supporting Document(s) Choriogonadotropin.intact [Units/volume] in Serum or Plasma <0.5 mIU/ mL [facility] Interpr etation: Less than 5 mU/mL: Negative 6-10 mU/mL: Borderline (suggest repeat in 48 hours) >10: Positive Approx HCG range (mU/mL) Weeks post LMP 5.4-708 mU/mL 3-4 Weeks 217-60998 mU/mL 5-6 Weeks 4059-514413 mU/mL 7-8 Weeks 61705-353810 mU/mL 9-10 Weeks 89906-47684 mU/mL 12-14 Weeks 24238-47334 mU/mL 15-16 Weeks 8240- 05394 mU/mL 17-18 Weeks ID Date Data Source [id number] 01/03/2021 01:11:00 PM EDT [facility] Value Range Interpretation Code Description Data Diane rce(s) Supporting Document(s) BNP 94 PG/ML 0 - 125 [facility] ID Date Data Source [id number] 01/03/2021 01:10:00 PM EDT [facility] Name Value Range Interpretation Code Description Data Diane rce(s) Supporting Document(s) COMPREHENSIVE METABOLIC PANEL [facility] COMPREHENSIVE METABOLIC PANEL Sodium [Moles/volume] in Serum or Plasma 139 mEq/L 134 - 153 [facility] Potassium [Moles/volume] in Serum or Plasma 4.0 mEq/L 3.6 - 5.0 [facility] Chloride [Moles/volume] in Serum or Plasma 103 mEq/L 98 - 107 [facility] Carbon dioxide, total [Moles/volume] in Serum or Plasma 26 MEQ/L 22 - 30 [facility] Glucose [Mass/volume] in Serum or Plasma 81 MG/DL 70 - 99 [facility] BUN 9 MG/DL 7 - 21 [facility] al Creatinine [Mass/volume] in Serum or Plasma 0.7 MG/DL 0.7 - 1.5 [facility] BUN/CREAT 13 8 - 27 [facility] al Protein [Mass/volume] in Serum or Plasma 7.2 G/DL 6.3 - 8.2 [facility] Albumin [Mass/volume] in Serum or Plasma 4.1 G/DL 3.9 - 5.0 [facility] Globulin [Mass/volume] in Serum by calculation 3.1 GM/DL 2.4 - 3.2 [facility] A/G RATIO 1.3 0.8 - 2.0 [facility] Calcium [Mass/volume] in Serum or Plasma 9.2 MG/DL 8.4 - 10.2 [facility] Bilirubin.total [Mass/volume] in Serum or Plasma <0.7 MG/DL 0.2 - 1.3 [facility] Alkaline phosphatase [Enzymatic activity/volume] in Serum or Plasma 56 U/L 38 - 126 [facility] Aspartate aminotransferase [Enzymatic activity/volume] in Serum or Plasma 16 U/L 5 - 40 [facility] Alanine aminotransferase [Enzymatic activity/volume] in Seru m or Plasma 8 U/L 7 - 56 [facility] Anion gap 3 in Serum or Plasma 10.0 mmol/L 8.0 - 16.0 [facility] AGE [address] [facility] NON-AA GFR >60 mL/min [facility] AFR AMER GFR >60 mL/min [facility] Male GFR In terprentation 20-49 yrs >60 mL/min Normal 50-59 yrs >56 mL/min Normal 60-69 yrs >49 mL/min Normal 70-79yrs >42 mL/min Normal 80 and above >35 mL/min Normal Female GFR Interpretation 20-39 yrs >60 mL/min Normal 40-49 yrs >58 mL/min Normal 50-59 yrs >51 mL/min Normal 60-69 yrs >45 mL/min Normal 70-79 yrs >39 mL/min Normal 80 and above >32 mL/min Normal ID Date Data Source [id number] 01/03/2021 01:08:00 PM EDT [facility] Name Value Range Interpretation Code Description Data Diane rce(s) Supporting Document(s) Lipase [Enzymatic activity/volume] in Serum or Plasma 24 U/L 13 - 60 [facility] ID Date Data Source [id number] 01/03/2021 12:54:00 PM EDT [facility] Name Value Range Interpretation Code Description Data Diane rce(s) Supporting Document(s) Fibrin D-dimer FEU [Mass/volume] in Platelet poor plasma 0.54 ug /mL 0.27 - 0.50 H [facility] ID Date Data Source [id number] 01/03/2021 12:53:00 PM [facility] Name Value Range Interpretation Code Description Data Diane rce(s) Supporting Document(s) Prothrombin time (PT) 13.3 SECONDS 11.0 - 15.5 [facility] INR in Platelet poor plasma by Coagulation assay 0.96 0.93 - 1. 23 [facility] aPTT in Blood by Coagulation assay 28.0 SECONDS 24.8 - 36.7 [facility] \\BLDo\\INR INTERPRETATION\\BLDx\\ Therapeutic range for Coumadin and related oral anticoagulants. - International Normalized Ratio (INR): 2.0 - 3.0 for Venous Thrombosis, Pulmonary Embolus, Tissue heart valves, Acute NE Atrial Fibrillation, Valvular heart disease and recurrent Systemic Embolism. - International Normalized Ratio (INR): 2.5 - 3.5 for Mechanical Prosthetic valve. ID Date Data Source [id number] 01/03/2021 12:30:00 PM EDT [facility] Name Value Range Interpretation Code Description Data Diane rce(s) Supporting Document(s) CBC W/AUTOMATED DIFF [facility] COMPLETE BLOOD COUNT Leukocytes [#/volume] in Blood by Automated count 8.0 10^3/uL 4.2 - 1 1.0 [facility] Erythrocytes [#/volume] in Blood by Automated count 4.51 10^6/uL 4. 20 - 5.40 [facility] Hemoglobin [Mass/volume] in Blood 10.4 g/dL 12.0 - 16.0 L [facility] Hematocrit [Volume Fraction] of Blood by Automated count 32.5 % 3 7.0 - 47.0 L [facility] Erythrocyte mean corpuscular volume [Entitic volume] by Auto mated count 72.1 fL 81.0 - 101 L [facility] Erythrocyte mean corpuscular hemoglobin [Entitic mass] by Automated count 23.1 pg 27.0 - 34.0 L [facility] Erythrocyte mean corpuscular hemoglobin concentration [Mass/volume] by Automated count 32.0 g/dL 31.0 - 36.0 [facility] Erythrocyte distribution width [Ratio] by Automated count 15.4 % 11.5 - 14.5 H [facility] Platelets [#/volume] in Blood by Automated count 427 10^3/uL 150 - 45 0 [facility] Platelet mean volume [Entitic volume] in Blood by Automated count 10.1 fL 7.4 - 10.4 [facility] Neutrophils/100 leukocytes in Blood by Automated count 60.3 % 37. 0 - 80.0 [facility] Lymphocytes/100 leukocytes in Blood by Manual count 32.7 % 25.0 - 40.0 [facility] Monocytes/100 leukocytes in Blood by Automated count 6.4 % 3.0 - 8.0 [facility] Eosinophils/100 leukocytes in Blood by Automated count 0.2 % 0.0 - 7.0 [facility] Basophils/100 leukocytes in Blood by Automated count 0.2 % 0.0 - 2.5 [facility] %IG 0.2 % 0.0 - 0.[address] [facility] 0.0 % 0.0 - 0.0 [facility] Neutrophils [#/volume] in Blood by Automated count 4.83 10^3/uL 2.00 - 6.90 [facility] Lymphocytes [#/volume] in Blood by Automated count 2.62 10^3/uL 0.60 - 3.40 [facility] Monocytes [#/volume] in Blood by Automated count 0.51 10^3/uL 0.00 - 0.90 [facility] Eosinophils [#/volume] in Blood by Automated count 0.02 10^3/uL 0.00 - 0.70 [facility] Basophils [#/volume] in Blood by Automated count 0.02 10^3/uL 0.00 - 0.20 [facility] #IG 0.02 10^3/uL 0.00 - 0.10 [facility] #NRBC 0.00 10^3/uL 0.00 - 0.00 [facility] MANUAL DIFF NOT INDICATED [facility] RBC MORPH NOT INDICATED [facility] ID Date Data Source [id number] 10/27/2020 11:35:00 AM EST [facility] Name Value Range Interpretation Code Description Data Diane rce(s) Supporting Document(s) SARS coronavirus 2 RNA Not Detected [facility] This lab was ordered by [facility] and reported by [facility]. Procedure Social History No Information
[2021-08-03 10:25] LABS: BASO % 0.5 % (0.0-1.0); EOS % 0.2 % (0.0-3.0); HEMATOCRIT 33.1 % (36.0-47.0); HEMOGLOBIN 10.2 g/dl (12.0-15.5); LYMPH % 44.9 % (24.0-44.0); MEAN CORPUSCULAR HEMOGLOBIN 22.8 pg (27.0-33.0); MEAN CORPUSCULAR HGB CONC 30.8 g/dl (32.0-36.5); MEAN CORPUSCULAR VOLUME 73.9 fl (80.0-96.0); MONO # 0.4 10^3/uL (0.0-0.8); MONO % 9.3 % (2.0-8.0); NEUTROPHILS % 44.9 % (36.0-66.0); PLATELET COUNT, AUTOMATED 356 10^3/uL (150-450); RED BLOOD COUNT 4.48 10^6/uL (4.00-5.40); WHITE BLOOD COUNT 4.4 10^3/uL (4.0-10.0)
--- NOTE | 2021-08-03 10:48 | REP ---
INDICATION: chest pain--left sided. COMPARISON: None. TECHNIQUE: PA and lateral FINDINGS: The superior mediastinal structures are midline. The cardiac silhouette is unremarkable in size, shape, and position. The diaphragmatic surfaces of the lungs are regular, and the costophrenic angles are clear. The pulmonary marina are clear. The imaged osseous structures are intact. IMPRESSION: There is no acute cardiopulmonary disease. <Electronically signed by Fred Oh > 08/03/21 1043
[2021-08-03 11:22] LABS: BLOOD UREA NITROGEN 9 MG/DL (7-18); CALCIUM LEVEL 8.9 MG/DL (8.5-10.1); CARBON DIOXIDE LEVEL 29 MEQ/L (21-32); CHLORIDE LEVEL 105 MEQ/L (98-107); CK-MB VALUE MASS < 1.0 NG/ML (<3.6); CPK CREATINE PHOSPHOKINASE 147 U/L (26-192); CREATININE FOR GFR 0.81 MG/DL (0.55-1.30); GLOMERULAR FILTRATION RATE > 60.0 (>60); GLUCOSE, FASTING 81 MG/DL (70-100); MB/CK RELATIVE INDEX 0.68 (< OR =4); POTASSIUM SERUM 3.7 MEQ/L (3.5-5.1); SODIUM LEVEL 139 MEQ/L (136-145); TROPONIN I < 0.02 NG/ML (< 0.10)
[2021-08-03] MEDS ORDERED: NS 1,000 ML IV ONE (11:35)
[2021-08-03] MEDS ORDERED: ISOVUE-370 76% 100ML VIAL As Ordered ONE (11:44)
--- NOTE | 2021-08-03 12:15 | REP ---
INDICATION: chest pain elevated d-dimer. COMPARISON: Two-view chest 08/03/2021. TECHNIQUE: CT angiogram chest performed following the intravenous administration of 75 cc of Isovue 370. Sagittal and coronal standard and MIP reconstruction images are performed. FINDINGS: Lungs: Clear, no infiltrate or nodule. Mediastinum: No adenopathy. Small thymic remnant is anatomic normal finding noted. Pulmonary arteries: The main, right and left pulmonary artery in the mediastinum are without filling defects. The lobar, segmental and subsegmental arteries are also without filling defects or vessel cut off. Gris: No adenopathy. Axilla: There is some mild axillary adenopathy on the right with the largest node 11 mm in short axis and all other sub cm on both sides, all are normal on the left. No supraclavicular adenopathy or mass. Pleura: No effusion. Heart: Not enlarged. No pericardial thickening or effusion. Thoracic aorta: No aneurysm or dissection. Upper abdominal structures: Solid organs, portions of gallbladder and stomach seen and bowel loops in the upper abdomen grossly intact. No hiatal hernia. Visualized osseous structures: Spine, sternum and manubrium, visualized clavicles, scapulae, humeral heads and ribs all grossly intact. IMPRESSION: No CT evidence of pulmonary embolism. No infiltrate seen. Some mild axillary adenopathy on the right side only with a few enlarged nodes, the largest is 11 mm in short axis. Clinical correlation is suggested. I do not see etiology for this on this CT. There is no other significant finding. <Electronically signed by Kaiden Perkins > 08/03/21 1211
[2021-08-03] MEDS ORDERED: NAPR-837 PO (12:23)
[2021-08-03 12:35] VITALS: BP 122/70
--- NOTE | 2021-08-03 20:32 | ECGEPIP ---
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 Order Number: [id number] Reading MD: Irene Ni Measurements Intervals [place] Rate: 66 P: 60 CA: 164 QRS: 57 QRSD: 80 T: 35 QT: 392 QTc: 410 Interpretive Statements Normal sinus rhythm Nonspecific ST and T wave abnormality similar 08/12/19 Electronically Signed on 08-03-2021 20:32:21 EST by Irene Ni
--- NOTE | 2021-08-04 09:16 | ED PDOC ---
Post-Departure Follow-Up radiology repor tfaxed to [facility] Irene Ni MD Aug 04, 2021 09:16
== END 2021-08-03 12:36 | disposition home or self-care (01) ==
LOC: M ED 06:52
DX: R07.89 Other chest pain (principal); R59.0 Localized enlarged lymph nodes; I10 Essential (primary) hypertension; Z79.899 Other long term (current) drug therapy
CPT/HCPCS: 71046; 71275; 80048; 82550; 82553; 84484; 85025; 85379; 93005; 96360; 99284; Q9967

== ENCOUNTER → 2021-09-28 | Outpatient (REF) ==
[~2021-09-28] MED LIST changes: +NAPR-837 PO
== END ==
LOC: M LABSMTC 09:27
PROVIDERS: ATTEND Pediatrics
DX: Z11.52 Encounter for screening for COVID-19 (principal)